=== PATIENT | female | born 2000 | race Caucasian/White ===

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

== ENCOUNTER → 2020-09-01 | Outpatient (CLI) | payer BC, SELFPAY ==
[2020-09-03 20:08] LABS: Chlamydia By Nucleic Acid AMP Negative (Negative)
[2020-09-03 21:26] LABS: Gonococcus By Nucleic Acid AMP Negative (Negative)
[2020-09-07 19:44] LABS: HPV Reflexed? NOT INDICATED
== END | disposition home or self-care (01) ==
LOC: LABSPEC 16:39
PROVIDERS: PCP Family Medicine; Visit Provider Obstetrics & Gynecology
DX: Z12.4 Encounter for screening for malignant neoplasm of cervix (principal)
CPT/HCPCS: 87491; 87591; 88175; G0145

== ENCOUNTER → 2021-09-03 | Outpatient (CLI) | payer BC, SELFPAY ==
[2021-09-06 18:07] LABS: Chlamydia By Nucleic Acid AMP Negative (Negative)
[2021-09-06 19:00] LABS: Gonococcus By Nucleic Acid AMP Negative (Negative)
== END | disposition home or self-care (01) ==
LOC: LABSPEC 10:07
PROVIDERS: PCP Family Medicine; Visit Provider Obstetrics & Gynecology
DX: Z11.3 Encounter for screening for infections with a predominantly sexual mode of transmission (principal)
CPT/HCPCS: 87491; 87591

== ENCOUNTER → 2022-02-23 | Outpatient (CLI) | payer BC, SELFPAY ==
[2022-02-23 13:48] LABS: Follicle Stimulating Hormone 5.7 mIU/mL; Luteinizing Hormone 7.3 mIU/mL; Prolactin 5.9 ng/mL
[2022-03-02 13:08] LABS: Testosterone, % Free 2.84 % (0.50-2.80); Testosterone, Total 28 ng/dL (13-71)
== END | disposition home or self-care (01) ==
LOC: WOBLAB 11:42
PROVIDERS: PCP Family Medicine; Visit Provider Student in an Organized Health Care Education/Training Program
DX: N92.6 Irregular menstruation, unspecified (principal)
CPT/HCPCS: 36415; 82627; 83001; 83002; 84146; 84402; 84403; 84443; 82626

== ENCOUNTER → 2023-01-03 | Outpatient (CLI) | payer BC, SELFPAY ==
[2023-01-03 08:12] LABS: Glucose 75GTT - Fasting 93 mg/dL (70-99)
[2023-01-03 08:26] LABS: Insulin 75GTT - Fasting 8.6 mU/L (2.6-37.6)
[2023-01-03 08:26] LABS: T3 Total - Triiodothyronine 1.36 ng/mL (0.6-1.81)
[2023-01-03 08:55] LABS: Glucose 75GTT - 60 minutes 107 mg/dL (100-160)
[2023-01-03 08:55] LABS: Glucose 75GTT - 30 minutes 147 mg/dL (100-160)
[2023-01-03 08:59] LABS: Insulin 75GTT - 30 MIN 57.1 mU/L (Not Estab.)
[2023-01-03 08:59] LABS: Insulin 75GTT - 60 min 66.8 mU/L (Not Estab)
[2023-01-03 09:02] LABS: Free T3 3.5 pg/mL (2.18-3.98); Prolactin 21.7 ng/mL; T4 Free Direct 1.15 ng/dL (0.76-1.46); Thyroid Stim Hormone (TSH) 4.62 uIU/mL (0.358-3.74)
[2023-01-03 09:14] LABS: Prolactin 9.8 ng/mL; Thyroid Stim Hormone (TSH) 2.74 uIU/mL (0.358-3.74)
[2023-01-03 09:14] LABS: Prolactin 12.3 ng/mL
[2023-01-03 09:50] LABS: Glucose 75GTT - 120 minutes 77 mg/dL (70-140)
[2023-01-03 09:53] LABS: Glucose 76 mg/dL (74-106)
[2023-01-03 09:58] LABS: Insulin 55.4 mU/L (2.6-37.6)
[2023-01-03 09:59] LABS: Insulin 75GTT - 120 min 38.7 mU/L (Not Estab.)
== END | disposition home or self-care (01) ==
PROVIDERS: PCP Family Medicine; Referring Provider Obstetrics & Gynecology; Visit Provider Obstetrics & Gynecology
DX: E03.9 Hypothyroidism, unspecified (principal); N92.6 Irregular menstruation, unspecified; Z13.1 Encounter for screening for diabetes mellitus
CPT/HCPCS: 36415; 82533; 82947; 82951; 82952; 83525; 84146; 84439; 84443; 84480; 84481

== ENCOUNTER → 2023-01-20 | Outpatient (CLI) | payer BC, SELFPAY ==
[2023-01-20 09:38] LABS: Cholesterol 123 mg/dL (200); High Density Lipoprotein 71 mg/dL; Triglycerides 44 mg/dL; Very Low Density Lipoprotein 9 mg/dL (5-40)
== END | disposition home or self-care (01) ==
LOC: LAB 08:00
PROVIDERS: PCP Family Medicine; Referring Provider Obstetrics & Gynecology; Visit Provider Obstetrics & Gynecology
DX: E24.9 Cushing's syndrome, unspecified (principal); Z13.228 Encounter for screening for other metabolic disorders
CPT/HCPCS: 36415; 80061; 82533

== ENCOUNTER → 2023-02-01 | Outpatient (CLI) | payer BC, SELFPAY | END | disposition home or self-care (01) | PROVIDERS: PCP Family Medicine; Referring Provider Obstetrics & Gynecology; Visit Provider Obstetrics & Gynecology | DX: E24.9 Cushing's syndrome, unspecified (principal) ==

== ENCOUNTER → 2023-03-15 | Outpatient (CLI) | payer BC, SELFPAY ==
[2023-03-15 11:53] LABS: Free T3 3.2 pg/mL (2.18-3.98); Prolactin 8.1 ng/mL; T4 Free Direct 1.19 ng/dL (0.76-1.46); Thyroid Stim Hormone (TSH) 1.91 uIU/mL (0.358-3.74)
[2023-03-28 00:07] LABS: Anti-Thyroglobulin AB 2.4 IU/mL (0.0-0.9); Thyroglobulin RIA 22 ng/mL (.); Thyroid Peroxidase AB 243 IU/mL (0-34)
== END | disposition home or self-care (01) ==
LOC: LAB 07:45
PROVIDERS: PCP Family Medicine; Visit Provider Obstetrics & Gynecology
DX: E07.9 Disorder of thyroid, unspecified (principal); E22.1 Hyperprolactinemia
CPT/HCPCS: 36415; 84146; 84432; 84439; 84443; 84480; 84481; 86376; 86800

== ENCOUNTER → 2023-10-31 | Outpatient (CLI) | payer BC, SELFPAY ==
[2023-10-31 08:35] LABS: T3 Total - Triiodothyronine 1.04 ng/mL (0.6-1.81)
[2023-10-31 13:04] LABS: Free T3 2.9 pg/mL (2.18-3.98); Prolactin 9.7 ng/mL; T4 Free Direct 1.15 ng/dL (0.76-1.46); Thyroid Stim Hormone (TSH) 5.29 uIU/mL (0.358-3.74)
== END | disposition home or self-care (01) ==
LOC: LAB 07:36
PROVIDERS: PCP Family Medicine; Referring Provider Obstetrics & Gynecology; Visit Provider Obstetrics & Gynecology
DX: E03.8 Other specified hypothyroidism (principal); E22.1 Hyperprolactinemia
CPT/HCPCS: 36415; 84146; 84439; 84443; 84480; 84481

== ENCOUNTER → 2023-11-20 | Outpatient (CLI) | payer BC, SELFPAY ==
[2023-11-20 09:45] LABS: Ferritin 50 ng/mL (8-252); Iron 55 ug/dL (50-170); Iron Binding Capacity,Total 283 ug/dL (250-450); PERCENT IRON SATURATION 19.4 % (15.0-55.0)
== END | disposition home or self-care (01) ==
PROVIDERS: PCP Family Medicine; Referring Provider Obstetrics & Gynecology; Visit Provider Obstetrics & Gynecology
DX: E03.9 Hypothyroidism, unspecified (principal); R53.82 Chronic fatigue, unspecified
CPT/HCPCS: 36415; 82728; 83540; 83550

== ENCOUNTER → 2024-04-24 | Outpatient (CLI) | payer BC, SELFPAY ==
[2024-04-25 08:10] LABS: PROLACTIN 10.9 ng/mL (4.8-33.4)
== END | disposition home or self-care (01) ==
LOC: LAB 07:16
PROVIDERS: PCP Family Medicine; Referring Provider Obstetrics & Gynecology; Visit Provider Obstetrics & Gynecology
DX: E22.1 Hyperprolactinemia (principal)
CPT/HCPCS: 36415; 84146

== ENCOUNTER → 2024-08-22 | Outpatient (CLI) | payer BC, SELFPAY ==
[2024-08-27 08:01] LABS: HPV Reflexed? NOT INDICATED
== END | disposition home or self-care (01) ==
LOC: LABSPEC 10:25
PROVIDERS: PCP Family Medicine; Referring Provider Nurse Practitioner Family; Visit Provider Nurse Practitioner Family
DX: Z12.4 Encounter for screening for malignant neoplasm of cervix (principal)
CPT/HCPCS: 88175; G0145

== ENCOUNTER → 2025-01-21 | Outpatient (CLI) | payer BC, SELFPAY ==
[2025-01-22 08:09] LABS: PROLACTIN 18.1 ng/mL (4.8-33.4)
== END | disposition home or self-care (01) ==
LOC: LAB 10:28
PROVIDERS: PCP Family Medicine; Referring Provider Nurse Practitioner Family; Visit Provider Nurse Practitioner Family
DX: E23.7 Disorder of pituitary gland, unspecified (principal)
CPT/HCPCS: 36415; 84146

== ENCOUNTER → 2025-02-24 | Outpatient (CLI) | payer OTHER, BC, SELFPAY ==
[2025-02-24 16:44] LABS: Free T3 3.2 pg/mL (2.18-3.98)
--- OUTSIDE RECORDS SUMMARY | 2025-02-24 19:09 | XMS RPT_ITS | CCD ---
Author Organization [facility] Care Team Providers Care Sales Agent Protective Service Name Role Phone Will REBOLLEDO, Dr. Gil Primary Care Provider Dr. Jeffery Solis MD Referring Provider 1( [phone] Jil MONTEIROCLizbeth Attending Provider [phone] Lizbeth Faulkner Referring Provider Jeffery Solis Primary Care Unavailable Fannie Fritz Referring Unavailable Fannie Fritz Attending Unavailable Lizbeth Ley Attending Unavailable Jeffery Solis Primary Care Unavailable Lizbeth Ley Referring Unavailable Lizbeth Ley Attending Unavailable Jeffery Solis Primary Care Unavailable Libzeth Ley Referring Unavailable Jeffery Solis Referring Unavailable Jeffery Solis Primary Care Unavailable Lizbeth Ley Attending Unavailable Allergies Allergy Classification Reported Allergen(s) Allergy Type Date of Onset Reaction(s) Facility (1 source) Adhesive Tape Drug allergy (disorder) 08-22-2024 [facility] Repository Medications Current Medications Medication Drug Class(es) Dates Sig (Normalized) Sig (Original) adapalene (2 sources) Retinoid Start: 06-06-2024 Adapalene (Dif ferin) 0.1 % gel Active 1 [facility] TOPICAL daily June 06, 2024 1:00am Start: 06-06-2024 End: 08-22-2024 Adapalene 0.1 % gel Disconti nued 1 NMA TOPICAL daily June 06, 2024 1:00am August 22, 2024 8:58am cabergoline 0.5 mg oral tablet (2 sources) Ergot Derivative Start: 06-06-2024 End: 08-22-2024 Cabergoline 0.5 mg tablet Active 0.5 mg PO .1xw August 22, 2024 8:58am docosahexaenoic acid 200 mg oral capsule (1 source) Start: 06-06-2024 Docosahexaenoic Acid ( Dha) 200 mg capsule Active mg PO June 06, 2024 1:00am levothyroxine sodium 0.025 mg oral tablet (1 source) l-Thyroxine Start: 06-06-2024 take 1 tablet by mouth once daily Levothyroxine (Synthroid) 25 mcg tablet Active 25 ug PO daily June 06, 2024 1:00am tretinoin 0.25 mg/ml topical cream (1 source) Retinoid Start: 06-06-2024 Tretinoin 0.025 % cream Active 1 NMA TOPICAL AT BEDTIME June 06, 2024 1:00am Problems Active Problems Problem Classification Problem Date Documented Da te Episodic/Chronic Other endocrine disorders (1 source) Disorder of pituitary gland, unspecified; Translations: [Disorder of pituitary gland, unspecified] Onset: 02-10-2025 Chronic Other endocrine disorders (1 source) Hyperprolactinemi a; Translations: [Hyperprolactinem ia] Onset: 05-14-2024 Chronic Past or Other Problems Problem Classification Problem Date Documented Da te Episodic/Chronic Other screening for suspected conditions (not mental disorders or infectious disease) (1 source) Encounter for screening for malignant neoplasm of cervix; Translations: [Encounter for screening for malignant neoplasm of cervix] Onset: 08-27-2024 Episodic Results Test Name Value Interpretation Reference Range Facility PROLACTIN 4465on 01-22-2025 PROLACTIN 18.1 ng/mL Normal 4.8-33.4 [facility] Comment on above: Result Comment: Perf ormed at: - [facility] [address] [id number] Main [place] Cook And Cashier: Demetrius Russo PhD, Phone: [phone] Performed By: #### L 5869.2186 #### [facility], [address] PAP I-G w/rfx hrHPV-Aptimaon 08-26-2024 ADEQ Comment Normal . [facility] Comment on above: Order Comment: Speci men Comment: [id number] Specimen Comment: No. of containers..01 ThinPrep Vial Result Comment: Sati sfactory for evaluation. Endocervical and/or squamous metaplastic cells (endocervical component) are present. Performed By: #### L 7400.0353 #### [facility] [address] [place], [address] COMM . Normal . [facility] Comment on above: Order Comment: Speci men Comment: [id number] Specimen Comment: No. of containers..01 ThinPrep Vial Performed By: #### L 7400.0353 #### [facility] [address] [place], [address] COMMENT Comment Normal . [facility] Comment on above: Order Comment: Speci men Comment: [id number] Specimen Comment: No. of containers..01 ThinPrep Vial Result Comment: This liquid based ThinPrep(R) pap test was screened with the use of an image guided system. Performed By: #### L 7400.0353 #### [facility] [address] [place], [address] DIAG Comment Normal . [facility] Comment on above: Order Comment: Speci men Comment: [id number] Specimen Comment: No. of containers..01 ThinPrep Vial Result Comment: NEGA TIVE FOR INTRAEPITHELIAL LESION OR MALIGNANCY. Performed By: #### L 7400.0353 #### [facility] [address] [place], [address] HPV RFLX Comment Normal . [facility] Comment on above: Order Comment: Speci men Comment: [id number] Specimen Comment: No. of containers..01 ThinPrep Vial Result Comment: The HPV DNA reflex criteria were not met with this specimen result therefore, no HPV testing was performed. Performed at: [address] [id number] Main [place] Cook And Cashier: Emma Rosenberg MD, Phone: [phone] Performed By: #### L 7400.0353 #### [facility] [address] [place], [place], [address] PAPSMR Comment Normal . [facility] Comment on above: Order Comment: Speci men Comment: [id number] Specimen Comment: No. of containers..01 ThinPrep Vial Result Comment: The Pap smear is a screening test designed to aid in the detection of premalignant and malignant conditions of the uterine cervix. It is not a diagnostic procedure and should not be used as the sole means of detecting cervical cancer. Both false-positive and false-negative reports do occur. Performed By: #### L 7400.0353 #### [facility] [address] [place], [place], [address] PERFORM Comment Normal . [facility] Comment on above: Order Comment: Speci men Comment: [id number] Specimen Comment: No. of containers..01 ThinPrep Vial Result Comment: Josee Huerta Marine Steam Fitter (ASCP) Performed By: #### L 7400.0353 #### [facility] [address] [place], [place], [address] Cervical or vagninal specime n microscopic examination by cytology stain (reported asOrdered By: Lizbeth Ley on 08-22-2024 Cytology report Cyto stain Doc (Cvx/Vag) Comment . [facility] Comment on above: The Pap smear is a s creening test designed to aid in thedetection of premalignant and malignant conditions of theuterine cervix. It is not a diagnostic procedure andshould not be used as the sole means of detecting cervicalcancer. Both false-positive and false-negative reports dooccur. Laboratory - CytologyOrdered By: Lizbeth Ley on 08-22-2024 Marine Steam Fitter Cyto stain Nom (Cvx/Vag) [ID] Comment . [facility] Comment on above: Josee Huerta Cyto logist (ASCP) Laboratory - Miscellaneous t estsOrdered By: Lizbeth Ley on 08-22-2024 Service comment (Unsp spec) [Interp] . . [facility] No Panel InformationOrdered By: Lizbeth Ley on 08-22-2024 Pap Smear Specimen Adequacy Comment . [facility] Comment on above: Satisfactory for stewart luation. Endocervical and/or squamous metaplasticcells (endocervical component) are present. 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: No Is patient in pain?: No Allergies adhesive tape Adverse Reaction (Verified 08/22/24 08:57) Rash Medications ???Medication ???Instructions ???Recorded ???Confirmed ???Type adapalene 0.1 % topical gel 1 applic topical QDAY 06/06/2412/09 History (Differin) docosahexaenoic acid 200 mg mg PO 06/06/24 08/22/24 History capsule ( DHA) levothyroxine 25 mcg tablet 25 mcg PO QDAY 06/06/24 08/22/24 H istory (Synthroid) tretinoin 0.025 % topical cream 1 applic topical QHS 06/06/24 05/0 12/09 History cabergoline 0.5 mg tablet 0.5 mg PO .1xw 08/22/24 08/22/24 H istory Is last menstrual period known: Yes Last Menstrual Period: 08/18/24 Post menopausal: No Patient : No : No Control Method: none PFSH Medical History Pituitary abnormality PCOS (polycystic ovarian syndrome) Hypothyroidism Surgical History [place] teeth removed (12/03/20) History of bunionectomy of left great toe (02/15/14) Family History Grandfather Thyroid disorder Social History adopted: No household members: significant other number of children: 0 service: No current occupational status: employed 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 [employer] current occupational exposures/hazards: Yes pets and animals: Yes (dog) leisure activities: exercise, fishing and reading history of recent travel: Yes ([place]) sexually active: Yes do you think of yourself as: straight/heterosexual current gender identity: female Smoking Status: Never smoker Electronic Cigarette Use: not used second hand exposure: Yes (uncle) alcohol intake: current alcohol intake frequency: a few times a month Alcohol type: wine and hard liquor substance use type: does not use well-balanced diet: daily or most days caffeine: Yes Type: carbonated beverages and coffee eating out: 1-3 times/week during the past year weight has: remained stable what type of physical activity do you participate in: walking, running, yoga and weight training How many days of moderate to strenuous exercise, like a brisk walk, did you do in the last 7 days: 3 frequency: 3-4 times per week duration: 45-60 minutes/day chris/confucianist: mandaeism seatbelt use: always do you feel safe at home: Yes additional social history: Ayesha LizarragaorPaz. 01/10/25 wedding History 0 Elective abortions Hx Para Spontaneous abortions Hx # Term Pregnancies Ectopic pregnancies Hx # Pregnancies Multiple births # of living children HPI Encounter for routine gynecological examination Details: MYLA OLIVO is a 24 year old who presents for annual exam. She reports no issues or concerns today. Getting in December; she is not currently using contraception-ayesha pulls out. She is okay with . Menses stable and regular. Last PAP: 2020; normal. History of abnormal PAP: no. Last mammogram: age. 39 History of abnormal mammogram: n/a. Colon cancer screening: age 44. Other preventative health care screenings: Jeffery Solis; PCP. Female Reproductive History Last Menstrual Period: 08/18/24 Cycle Length: 21-35 Bleeding Duration: 5 Questions: metorrhagia: No, sexually active: Yes, dyspareunia: No and PCB: No ROS Const Constitutional: Denies chills, fatigue, fever(s), headache(s) or weight loss Eyes Eyes: Denies change in vision ENT ENT: Denies dizziness Resp Resp: Denies cough GI GI: Denies abdominal pain, constipation or nausea : Denies difficulty voiding, dysuria, hematuria, nipple discharge, pelvic pain, prolapse symptoms, urinary incontinence, vaginal discharge, vaginal dryness, vaginal odor or vaginal pruritus Skin Skin/Breast: Denies alopecia, rash, breast mass, breast pain, breast skin changes or nipple discharge Neuro Neuro: Denies dizziness Psych Psych: Denies anxiety or depression Endo Endo: Denies cold intolerance, excessive sweating or heat intolerance Exam Const General: cooperative, healthy appearing, comfortable, no acute distress, well groomed and well hydrated Nutritional Appearance: well nourished Orientation: (more content not included)... Normal [facility] PROLACTIN 4465on 04-25-2024 PROLACTIN 10.9 ng/mL Normal 4.8-33.4 [facility] Comment on above: Result Comment: Perf ormed at: - [facility] [address] [id number] [place] Cook And Cashier: Demetrius Russo PhD, Phone: [phone] Performed By: #### L 3830.0688 #### [facility] [place], [address] Laboratory - Chemistry and C hemistry - challengeOrdered By: Fannie Padilla on 03-15-2023 Free T4 [Mass/Vol] 1.19 ng/dL 0.76-1.46 [facility] No Panel InformationOrdered By: Fannie Padilla on 03-15-2023 Free Triiodothyronine (T3) pg/dL 3.2 pg/mL 2.18-3.98 [facility] Thyroid Stimulating Hormone (TSH) 1.91 uIU/mL 0.358-3.74 [facility] Total Triiodothyronine 1.20 ng/mL 0.6-1.81 [facility] Serum or plasma prolactin me asurement (mass/volume)Ordered By: Fannie Padilla on 03-15-2023 Prolactin [Mass/Vol] 8.1 ng/mL [facility] Comment on above: NORMAL REFERENCE RAN GES FEMALE NON- 2.2 - 30.3 ng/mL 8.1 - 347.6 ng/mL POST-MENOPAUSAL 0.7 - 31.5 ng/mL MALE 2.5 - 17.4 ng/mL No Panel InformationOrdered By: Fannie Padilla on 02-01-2023 Miscellaneous Test See comment [facility] Comment on above: TEST RESULTS LIMITSS alivary Cortisol,MSSalivary Cortisol, MS 0.012 ug/dLThis test was developed and its performance characteristicsdetermined by [facility]. It has not been cleared or approvedby the Food and Drug Administration.Reference Range:Children and Adults:8:00a.m.: 0.025 - 0.600Noon: <0.010 - 0.3304:00p.m.: 0.010 - 0.200Bedtime (9:00p.m.-Midnight): <0.010 - 0.090 TESTING PERFORMED AT [facility]. ORIGINAL REPORT ON FILE IN LAB CONTAINS ADDITIONAL TEST SITE INFORMATION. Basophil percentageOrdered B y: Fannie Padilla on 01-20-2023 Cholesterol [Mass/Vol] 123 mg/dL <200 [facility] Comment on above: <200 mg/dL Desirable 200-240 mg/dL Borderline >240 mg/dL High Risk Triglyceride [Mass/Vol] 44 mg/dL <199 [facility] Comment on above: The drugs N-Acetylcy steine and Metamizole may falsely depress this assay.Serum Triglycerides Reference Interval Normal <150 mg/dL Borderline high 150 - 199 mg/dL High 200 - 499 mg/dL Very High > or = 500 mg/dL Serum or plasma cholesterol in HDL measurement (mass/volume)Ordered By: Fannie Padilla on 01-20-2023 Cholesterol in HDL [Mass/Vol] 71 mg/dL >40 [facility] Comment on above: The drugs N-Acetylcy steine and Metamizole may falsely depress this assay. Reference Range HDL <40 mg/dL Low HDL Cholesterol HDL >or= 60 mg/dL High HDL Cholesterol Serum or plasma cholesterol in VLDL measurement (mass/volume)Ordered By: Fannie Padilla on 01-20-2023 Cholesterol in VLDL [Mass/Vol] 9 mg/dL 5-40 [facility] Serum or plasma cortisol hima surement (mass/volume)Ordered By: Fannie Padilla on 01-20-2023 Cortisol [Mass/Vol] 23.30 ug/dL 3.44-22.45 [facility] Comment on above: Adult (AM) 5.27 - 22 .45 ug/dL Adult (PM) 3.44 - 16.76 ug/dLPlease note revised CORTISOL reference range effective 2019. Serum or plasma low density lipoprotein (LDL) cholesterol measurement (mass/volume)Ordered By: Fannie Padilla on 01-20-2023 Cholesterol in LDL [Mass/Vol] 43 mg/dL 0-130 [facility] Basophil percentageOrdered B y: Fannie Padilla on 01-03-2023 Glucose [Mass/Vol] 76 mg/dL 74-106 [facility] Laboratory - Chemistry and C hemistry - challengeOrdered By: Fannie Padilla on 01-03-2023 Free T4 [Mass/Vol] 1.15 ng/dL 0.76-1.46 [facility] No Panel InformationOrdered By: Fannie Padilla on 01-03-2023 Insulin Level 55.4 mU/L 2.6-37.6 [facility] Thyroid Stimulating Hormone (TSH) 2.74 uIU/mL 0.358-3.74 [facility] Glucose 2 Hour See comment [facility] Comment on above: FASTING 93 Col: 12/16 01/07 0714 30 min GLU 147 Col: 01/03/23 0751 60 min GLU 107 Col: 01/03/23 0819 120min GLU 77 Col: 01/03/23 0918 Free Triiodothyronine (T3) pg/dL 3.5 pg/mL 2.18-3.98 [facility] Total Triiodothyronine 1.36 ng/mL 0.6-1.81 [facility] Serum or plasma cortisol hima surement (mass/volume)Ordered By: Fannie Padilla on 01-03-2023 Cortisol [Mass/Vol] 30.70 ug/dL 3.44-22.45 [facility] Comment on above: Adult (AM) 5.27 - 22 .45 ug/dL Adult (PM) 3.44 - 16.76 ug/dLPlease note revised CORTISOL reference range effective 2019. Serum or plasma insulin angelika urement at 2 hours post 75 gm oral glucose (units/volume)Ordered By: Fannie Padilla on 01-03-2023 Insulin 2 Hr post 75 g glucose PO Qn See comment [facility] Comment on above: FASTING 8.6 Col: 0714 30 min INS 57.1 Col: 01/03/23 0751 60 min INS 66.8 Col: 01/03/23 0819 120min INS 38.7 Col: 01/03/23 0918 Serum or plasma prolactin me asurement (mass/volume)Ordered By: Fannie Padilla on 01-03-2023 Prolactin [Mass/Vol] 9.8 ng/mL [facility] Comment on above: NORMAL REFERENCE RAN GES FEMALE NON- 2.2 - 30.3 ng/mL 8.1 - 347.6 ng/mL POST-MENOPAUSAL 0.7 - 31.5 ng/mL MALE 2.5 - 17.4 ng/mL Chlamydia trachomatis rRNA d etection by probe and target amplification methodon 09-03-2021 C. trachomatis rRNA AMELIA+probe Ql (Unsp spec) Negative Negative [facility] Work Phone: Laboratory - Microbiology an d Antimicrobial susceptibilityon 09-03-2021 N. gonorrhoeae DNA AMELIA+probe Ql (Unsp spec) Negative Negative [facility] Work Phone: Comment on above: Performed at: =[facility] [address] [id number] Director: Emma Rosenberg MD, Phone: [phone] Vital Signs Date Time Vital Sign Value Performing Clinician Faci lity 08-22-2024 09:04-0400 Body height 170.[address] Jeffery Solis MD Work Phone: [facility] 08-22-2024 09:04-0400 Body mass index (BMI) [Ratio] 20.8 kg/m2 Dr. Jeffery Solis MD Work Phone: [facility] 08-22-2024 09:04-0400 Body weight 60.[address] Jeffery Solis MD Work Phone: [facility] 08-22-2024 09:04-0400 Diastolic blood pressure 82 mm[Hg] Dr. Jeffery Slois MD Work Phone: [facility] 08-22-2024 09:04-0400 Systolic blood pressure 135 mm[Hg] Dr. Jeffery Solis MD Work Phone: [facility] Encounters Encounter Date Encounter Type Care Provider Facility Start: 01-21-2025 End: 01-21-2025 ambulatory Lizbeth Ley Facility:[facility] Start: 08-22-2024 End: 08-22-[address] Jeffery Solis MD Work Phone: [facility] Work Phone: Start: 08-22-2024 End: 08-22-2024 Patient encounter procedure Lizbeth GONZALEZ -Laboratory, Specimen Work Phone: Start: 08-22-2024 End: 08-22-2024 Patient encounter procedure Lizbeth GONZALEZ -[facility] Work Phone: Start: 08-22-2024 End: 08-22-2024 ambulatory Jeffery Solis [place]: 08-22-2024 End: 08-22-2024 ambulatory Lizbeth Ley Facility:[facility] Start: 04-24-2024 End: 04-24-2024 ambulatory Jeffery Solis Facility:[facility] Start: 03-15-2023 End: 03-15-2023 ambulatory [facility] Work Phone: Start: 03-15-2023 End: 03-15-2023 Patient encounter procedure [facility]-Laboratory Work Phone: Start: 02-01-2023 End: 02-01-2023 ambulatory [facility] Work Phone: Start: 02-01-2023 End: 02-01-2023 Patient encounter procedure [facility]-Laboratory, Specimen Work Phone: Start: 01-20-2023 End: 01-20-2023 Patient encounter procedure [facility] Work Phone: Start: 01-03-2023 End: 01-03-2023 ambulatory [facility] Work Phone: Start: 01-03-2023 End: 01-03-2023 Patient encounter procedure [facility]Labor[facility] Work Phone: Start: 09-03-2021 End: 09-03-2021 Patient encounter procedure [facility]-Laboratory, Specimen Procedures Date Procedure Procedure Detail Performing Clinician Start: 08-22-2024 Liquid based cervica l cytology screening Dr. Jeffery Solis MD Work Phone: Comment on above: NEGATIVE FOR INTRAEP ITHELIAL LESION OR MALIGNANCY. This liquid based Th inPrep(R) pap test was screened withthe use of an image guided system. The HPV DNA reflex c riteria were not met with this specimenresult therefore, no HPV testing was performed.Performed at: [address] [id number] Director: Emma Rosenberg MD, Phone: [phone] Plan of Treatment Date Care Activity Detail Author Start: 02-01-2023 Procedure [facility] Procedure [facility] Thyroglobulin antibo dy measurement [facility] Thyroperoxidase Ab [ Units/volume] in Serum or Plasma [facility] Payers Date Payer Category Payer Self-pay [id number] 2024 Unknown [id number] 2015 Unknown [id number] Unknown SELF PAY INSURANCE [id number] Unknown [id number] Unknown [id number] [id number] [id number] Unknown [id number] [id number] [id number] Unknown [id number] 2.16.8 [id number] Unknown [id number] [id number] [id number] Social History Date Type Detail Facility Start: 02-10-2014 End: 02-10-2014 Tobacco smoking status TXIS Unknown if ever smoked [facility] Start: 2000 Sex Assigned At Female [facility] Start: 08-22-2024 Tobacco smoking stat us [facility] Never smoked tobacco (finding) [facility] Gender Identity Identifies as fe male gender (finding) [facility] Sexual Orientation Heterosexual (finding) [facility] Evaluation note Note Date & Type Note Facility Evaluation note No assessment information availa ble [facility] Work Phone: Reason for referral (narrative) Note Date & Type Note Facility Reason for referral (narrative) No reason for referral information available [facility] Work Phone: Advance Directives No Advanced Directives Records Found Advance Directive Response Recorded Date/ Time Advance Directives No February 10, 2014 9:28am Living Will No February 10 9:28am Power of Market Research Senior Project Manager No February 10, 2014 9:28am Advance Directive Response Recorded Date/ Time Advance Directives No February 10, 2014 8:28am Living Will No February 10 8:28am Power of Market Research Senior Project Manager No February 10, 2014 8:28am Advance Directive Response Recorded Date/ Time Advance Directives No February 10, 2014 9:28am Chief Complaint and Reason for Visit Chief Complaint diabities Chief Complaint Admit Date 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 Chris Solis MD Family Provider Active Dr. Chris Solis MD Primary Care Provider Activ e Team Status: Inactive Member Role Status Dates Dr. Chris Solis MD Primary Care Provider Activ e Dr. Fannie Padilla MD Attending Provider, Refer ring Provider Active Team Status: Inactive Member Role Status Dates Dr. Chris Solis MD Primary Care Provider Activ e Dr. Fannie Padilla MD Attending Provider Active Team Status: Active Member Role Status Dates Dr. Jeffery Solis MD Family Provider Active Dr. Jeffery Solis MD Primary Care Provider Acti ve Team Status: Inactive Member Role Status Dates Dr. Jeffery Solis MD Primary Care Provider Acti ve Start: August 22, 2024 End: August 22, 2024 Dr. Jeffery Solis MD Referring Provider Active Start: August 22, 2024 End: August 22, 2024 CARLOS Lezama Attending Provider Active Start: August 22, 2024 End: August 22, 2024 Team Status: Inactive Member Role Status Dates Dr. Jeffery Solis MD Primary Care Provider Acti ve Start: August 22, 2024 End: August 22, 2024 CARLOS Lezama Attending Provider Active Start: August 22, 2024 End: August 22, 2024 CARLOS Lezama Referring Provider Active Start: August 22, 2024 End: August 22, 2024 INFORMATION SOURCE (unrecogn ized section and content) DATE CREATED AUTHOR 02/11/2025 [facility] FOR RECORDS PERTAINING TO PATIENTS WHO ARE OR HAVE BEEN ENROLLED IN A CHEMICAL DEPENDENCY/SUBSTANCEABUSE PROGRAM, SOME INFORMATION MAY BE OMITTED. This clinical summary was aggregated from multiple sources. Caution should be exercised in using it in the provision of clinical care. This summary normalizes information from multiple sources, and as a consequence, information in this document may materially change the coding, format and clinical context of patient data. In addition, data may be omitted in some cases. CLINICAL DECISIONS SHOULD BE BASED ON THE PRIMARY CLINICAL RECORDS. [employer] [facility]. provides no warranty or guarantee of the accuracy or completeness of information in this document.
== END | disposition home or self-care (01) ==
PROVIDERS: PCP Family Medicine; Referring Provider Family Medicine; Visit Provider Family Medicine
DX: E03.9 Hypothyroidism, unspecified (principal)
CPT/HCPCS: 36415; 84439; 84443; 84481

== ENCOUNTER → 2025-03-18 | Outpatient (CLI) | payer OTHER, BC, SELFPAY ==
--- OUTSIDE RECORDS SUMMARY | 2025-03-18 07:42 | XMS RPT_ITS | CCD ---
Author Organization [facility] Care Team Providers Care Chain Offbearer Name Role Phone Will REBOLLEDO, Dr. Gil Primary Care Provider Dr. Jeffery Solis MD Referring Provider Jil METAL BONDING ASSEMBLER-CLizbeth Attending Provider Jil METAL BONDING ASSEMBLERJessicaCLizbeth Referring Provider Lizbeth Ley Attending Unavailable Lizbeth Ley Referring Unavailable Jeffery Solis Primary Care Unavailable Fannie Fritz Attending Unavailable Fannie Fritz Referring Unavailable Jeffery Solis Primary Care Unavailable Jeffery Solis Primary Care Unavailable Jeffery Solis Attending Unavailable Jeffery Solis Referring Unavailable Lizbeth Ley Attending Unavailable Jeffery Solis Primary Care Unavailable Jeffery Solis Referring Unavailable Lizbeth Ley Attending Unavailable Lizbeth Ley Referring Unavailable Jeffery Solis Primary Care Unavailable Allergies Allergy Classification Reported Allergen(s) Allergy [...] Test Name Value Interpretation Reference Range Facility Free T3on 02-24-2025 Free T3 [Mass/Vol] 3.2 pg/mL Normal 2.18-3.98 [facility] Comment on above: Order Comment: Order Date: 01/29/25 Order Info: 3051-0 - T3F Order Info: 3016-3 - TSH Order Info: 3024-7 - T4F Performed By: #### L 506.0400, L501.15805, L501.9520 #### [facility] [address] [place], [address] T4 Free Directon 02-24-2025 T4 FREE DIRECT 1.40 ng/dL Normal 0.76-1.46 [facility] Comment on above: Order Comment: Order Date: 01/29/25 Order Info: 305-0 - T3F Order Info: 3 - TSH Order Info: 3023-10 - T4F Performed By: #### L 506.0400, L501.10586, L501.9520 #### [facility] [address] [place], [place], [address] Thyroid Stim Hormone (TSH)on 02-24-2025 TSH 1.730 uIU/mL Normal 0.300-4.200 [facility] Comment on above: Order Comment: Order Date: 01/29/25 Order Info: 305-0 - T3F Order Info: 3 - TSH Order Info: 3023-10 - T4F Performed By: #### L 506.0400, L501.12496, L501.9520 #### [facility] [address] [place], [address] PROLACTIN 4465on 01-22-2025 PROLACTIN 18.1 ng/mL Normal 4.8-33.4 [facility] Comment on above: Result Comment: Perf ormed at: - [facility] [id number] Gandy Dancer: Demetrius Russo PhD, Phone: [phone] Performed By: #### L 3108.5400 #### [facility] [address] [place], [place], [id number] PAP I-G w/rfx hrHPV-Aptimaon 08-26-2024 ADEQ Comment Normal . [facility] Comment on above: Order Comment: Speci men Comment: [id number] Specimen Comment: No. of containers..01 ThinPrep Vial Result Comment: Sati sfactory for evaluation. Endocervical and/or squamous metaplastic cells (endocervical component) are present. Performed By: #### L 7400.0353 #### [facility] [address] [place], [place], [address] COMM . Normal . [facility] Comment on above: Order Comment: Speci men Comment: [id number] Specimen Comment: No. of containers..01 ThinPrep Vial Performed By: #### L 7400.0353 #### [facility] [address] [place], [place], [id number] COMMENT Comment Normal . [facility] Comment on above: Order Comment: Speci men Comment: [id number] Specimen Comment: No. of containers..01 ThinPrep Vial Result Comment: This liquid based ThinPrep(R) pap test was screened with the use of an image guided system. Performed By: #### L 7400.0353 #### [facility] [address] [place], [place], [id number] DIAG Comment Normal . [facility] Comment on above: Order Comment: Speci men Comment: [id number] Specimen Comment: No. of containers..01 ThinPrep Vial Result Comment: NEGA TIVE FOR INTRAEPITHELIAL LESION OR MALIGNANCY. Performed By: #### L 7400.0353 #### [facility] [address] [place], [place], [id number] HPV RFLX Comment Normal . [facility] Comment on above: Order Comment: Speci men Comment: [id number] Specimen Comment: No. of containers..01 ThinPrep Vial Result Comment: The HPV DNA reflex criteria were not met with this specimen result therefore, no HPV testing was performed. Performed at: - [facility] [id number] Gandy Dancer: Emma Rosenberg MD, Phone: [phone] Performed By: #### L 7400.0353 #### [facility] [address] [place], [place], [address] PAPSMR Comment Normal . [facility] Comment on above: Order Comment: Speci men Comment: [id number] Specimen Comment: No. of containers..01 ThinPrep Vial [...] [facility] [address] [place], [place], [address] PERFORM Comment Normal . [facility] Comment on above: Order Comment: Speci men Comment: [id number] Specimen Comment: No. of containers..01 ThinPrep Vial Result Comment: Josee Huerta Seam Checker (ASCP) Performed By: #### L 7400.0353 #### [facility] [address] [place], [place], [address] Cervical or vagninal specime n microscopic examination [...] - CytologyOrdered By: Lizbeth Ley on 08-22-2024 Seam Checker Cyto stain Nom (Cvx/Vag) [ID] Comment . [facility] Comment on above: Josee Huerta Cyto logist (ASCP) Laboratory - Miscellaneous t estsOrdered By: Lizbeth Ley on 08-22-2024 Service comment (Unsp spec) [Interp] . . [facility] No Panel InformationOrdered By: Lizbeth Ley on 08-22-2024 Pap Smear Specimen Adequacy Comment . [facility] Comment on above: Satisfactory for stewart luation. Endocervical and/or squamous metaplasticcells (endocervical component) are present. 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) Larriman Helper Required: No Is patient in pain?: No [...] % topical cream 1 applic topical QHS 06/06/2412/09 History cabergoline 0.5 mg tablet 0.5 mg PO .1xw 08/22/24 08/22/24 H istory Is last menstrual period known: Yes Last Menstrual Period: 08/18/24 Post menopausal: No Patient : No : No Control Method: none [facility] Medical History Pituitary abnormality PCOS (polycystic ovarian syndrome) Hypothyroidism Surgical History [place] teeth removed (12/03/20) History of bunionectomy of left great toe (02/15/14) Family History Grandfather Thyroid disorder Social History adopted: No household members: significant other number of children: 0 service: No current occupational status: employed 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 01/10/25 wedding History 0 Elective abortions Hx [...] Result Comment: Perf ormed at: - [facility] [address] [id number] Gandy Dancer: Demetrius Russo PhD, Phone: [phone] Performed By: #### L 9705.5409 #### [facility] [address] [place] [address], [address] Laboratory - Chemistry and C hemistry - challengeOrdered By: Fannie Padilla on 03-15-2023 Free T4 [Mass/Vol] 1.19 ng/dL 0.76-1.46 [facility] No Panel InformationOrdered By: Fannie Randy on 03-15-2023 Free Triiodothyronine (T3) pg/dL 3.2 pg/mL 2.18-3.98 [facility] Thyroid Stimulating Hormone (TSH) 1.91 uIU/mL 0.358-3.74 [facility] Total Triiodothyronine 1.20 ng/mL 0.6-1.81 [facility] Serum or plasma prolactin me asurement (mass/volume)Ordered By: Fannie Padilla on 03-15-2023 Prolactin [Mass/Vol] 8.1 ng/mL [facility] Comment on above: NORMAL REFERENCE RAN GES FEMALE NON- 2.2 - 30.3 ng/mL 8.1 - 347.6 ng/mL POST-MENOPAUSAL 0.7 - 31.5 ng/mL MALE 2.5 - 17.4 ng/mL No Panel InformationOrdered By: Fannie Padilla on 02-01-2023 Miscellaneous Test See comment [facility] Comment on above: TEST RESULTS LIMITSS alivary Cortisol,MSSalivary Cortisol, MS 0.012 ug/dLThis test was developed and its performance characteristicsdetermined by [facility]. It has not been cleared or approvedby the Food and Drug Administration.Reference Range:Children and Adults:8:00a.m.: 0.025 - 0.600Noon: <0.010 - 0.3304:00p.m.: 0.010 - 0.200Bedtime (9:00p.m.-Midnight): <0.010 - 0.090 TESTING PERFORMED AT [facility]. ORIGINAL REPORT ON FILE IN LAB CONTAINS [...] on 01-20-2023 Cortisol [Mass/Vol] 23.30 ug/dL 3.44-22.45 [facility] Comment on above: Adult (AM) 5.27 - 22 .45 ug/dL Adult (PM) 3.44 - 16.76 ug/dLPlease note revised CORTISOL reference range effective 2019. Serum or plasma low density lipoprotein (LDL) cholesterol measurement (mass/volume)Ordered By: Fannie Padilla on 01-20-2023 Cholesterol in LDL [Mass/Vol] 43 mg/dL 0-130 [facility] Basophil percentageOrdered B y: Fannie Padilla on 01-03-2023 Glucose [Mass/Vol] 76 mg/dL 74-106 [facility] - Chemistry and C hemistry - challengeOrdered By: Fannie Padilla on 01-03-2023 Free T4 [Mass/Vol] 1.15 ng/dL 0.76-1.46 [facility] No Panel InformationOrdered By: Fannie Padilla on [...] on 01-03-2023 Cortisol [Mass/Vol] 30.70 ug/dL 3.44-22.45 [facility] Comment on above: Adult (AM) 5.27 - [...] 01/03/23 0819 120min INS 38.7 Col: 01/03/23 09 Serum or plasma prolactin me asurement (mass/volume)Ordered By: Fannie Padilla on 01-03-2023 Prolactin [Mass/Vol] 9.8 ng/mL [facility] Comment on above: NORMAL REFERENCE RAN GES [...] Work Phone: Comment on above: Performed at: =[address] [id number] Director: Emma Rosenberg MD, Phone: [phone] Vital Signs Date Time Vital Sign Value Performing Clinician Thanh davison 08-22-2024 09:04-0400 Body height 170.[address] Jeffery Solis MD Work Phone: [facility] 08-22-2024 09:04-0400 Body mass index (BMI) [Ratio] 20.8 kg/m2 Dr. Jeffery Solis MD Work Phone: [facility] 08-22-2024 09:04-0400 Body weight 60.[address] Jeffery Solis MD Work Phone: [facility] 08-22-2024 09:04-0400 Diastolic blood pressure 82 mm[Hg] Dr. Jeffery Solis MD Work Phone: [facility] 08-22-2024 09:04-0400 Systolic blood pressure 135 mm[Hg] Dr. Jeffery Solis MD Work Phone: [facility] Encounters Encounter Date Encounter Type Care Provider Facility Start: 02-24-2025 ambulatory Jeffery Solis [facility] Start: 01-21-2025 End: 01-21-2025 ambulatory [facility] Facility:[facility] Start: 08-22-2024 End: 08-22-[address] Jeffery Solis MD Work Phone: [facility] Work Phone: Start: 08-22-2024 End: 08-22-2024 Patient encounter procedure Lizbeth Ley METAL BONDING ASSEMBLER-C -Laboratory, Specimen Work Phone: Start: 08-22-2024 End: 08-22-2024 Patient encounter procedure Lizbeth Ley METAL BONDING ASSEMBLER-C -[facility] Work Phone: Start: 08-22-2024 End: 08-22-2024 ambulatory Lizbeth Jacobobethel Facility:[facility] [place] [place] Start: 08-22-2024 End: 08-22-2024 ambulatory Lizbeth Ley Facility:[facility] Start: 04-24-2024 End: 04-24-[address] [facility] Hernandez Randy Facility:[facility] Start: 03-15-2023 End: 03-15-2023 ambulatory [facility] Work Phone: Start: 03-15-2023 End: 03-15-2023 Patient encounter procedure [facility]-Laboratory Work Phone: Start: 02-01-2023 End: 02-01-2023 ambulatory [facility] Work Phone: Start: 02-01-2023 End: 02-01-2023 [facility] Start: 01-20-2023 End: 01-20-2023 [...] therefore, no HPV testing was performed.Performed at: [address] [id number] Director: Emma Rosenberg MD, Phone: [phone] Plan of Treatment Date Care Activity Detail Author Start: 02-01-2023 Procedure [facility] Procedure [facility] Thyroglobulin antibo dy measurement [facility] Thyroperoxidase Ab [ Units/volume] in Serum or Plasma [facility] Payers Date Payer Category Payer Unknown [id number] 2024 Self-pay [id number] 2024 Unknown [id number] 2015 Unknown [id number] Unknown SELF PAY INSURANCE [id number] Unknown [id number] Unknown [id number] 2.16.8 [id number] Unknown [id number] 2.16.8 [id number] Unknown [id number] 2.16.8 [id number] Unknown [id number] 2.16.8 [id number] Unknown [id number] 2.16.8 [id number] Social History Date Type Detail Facility Start: 02-10-2014 End: 02-10-2014 Tobacco smoking status WAIS Unknown if ever smoked [facility] Start: 2000 Sex Assigned At Female [facility] Start: 08-22-2024 Tobacco smoking stat [facility] Never smoked tobacco (finding) [facility] [...] Will No February 10 9:28am Power of Port Surveyor No February 10, 2014 9:28am Advance Directive Response Recorded Date/ Time Advance Directives No February 10, 2014 8:28am Living Will No February 10 8:28am Power of Port Surveyor No February 10, 2014 8:28am Advance Directive Response Recorded Date/ Time Advance Directives No February 10, 2014 9:28am Chief Complaint and Reason for Visit Chief Complaint diabities Chief Complaint 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 [facility] [employer] [facility]. provides no warranty or guarantee of the accuracy or completeness of information in this document.
[2025-03-18 11:46] LABS: CORTISOL AM 20.90 ug/dL (6.02-18.40)
[2025-03-19 04:07] LABS: PROLACTIN 45.5 ng/mL (4.8-33.4)
== END | disposition home or self-care (01) ==
LOC: LAB 07:37
PROVIDERS: PCP Family Medicine; Referring Provider Nurse Practitioner Family; Visit Provider Nurse Practitioner Family
DX: R79.89 Other specified abnormal findings of blood chemistry (principal); E03.9 Hypothyroidism, unspecified
CPT/HCPCS: 36415; 82533; 84146; 86376

== ENCOUNTER → 2025-03-25 | Outpatient (CLI) | payer OTHER, BC, SELFPAY ==
[2025-03-25 12:16] LABS: hCG Titer Quant., Serum 404 mIU/mL (<9 non-preg)
== END | disposition home or self-care (01) ==
PROVIDERS: PCP Family Medicine; Visit Provider Obstetrics & Gynecology
DX: Z34.90 Encounter for supervision of normal pregnancy, unspecified, unspecified trimester (principal)
CPT/HCPCS: 36415; 84702

== ENCOUNTER → 2025-03-27 | Outpatient (CLI) | payer OTHER, BC, SELFPAY ==
[2025-03-27 10:09] LABS: hCG Titer Quant., Serum 895 mIU/mL (<9 non-preg)
== END | disposition home or self-care (01) ==
LOC: LAB 09:19
PROVIDERS: PCP Family Medicine; Referring Provider Obstetrics & Gynecology; Visit Provider Obstetrics & Gynecology
DX: Z34.90 Encounter for supervision of normal pregnancy, unspecified, unspecified trimester (principal)
CPT/HCPCS: 36415; 84702

== ENCOUNTER → 2025-03-31 | Outpatient (CLI) | payer OTHER, BC, SELFPAY ==
[2025-03-31 13:03] LABS: hCG Titer Quant., Serum 4253 mIU/mL (<9 non-preg)
== END | disposition home or self-care (01) ==
PROVIDERS: Nurse Practitioner Women's Health; PCP Family Medicine; Visit Provider Obstetrics & Gynecology
DX: Z34.90 Encounter for supervision of normal pregnancy, unspecified, unspecified trimester (principal)
CPT/HCPCS: 36415; 84702

== ENCOUNTER → 2025-04-09 | Outpatient (CLI) | payer OTHER, BC, SELFPAY ==
--- NOTE | 2025-04-09 07:48 | US_ITS ---
PROCEDURE: TRANSVAGINAL W/PREG US 04/09/2025 REASON FOR EXAM: DATING US. Provided LMP 02/22/2025. TECHNIQUE: Procedure Code: [id number] Modality: US Procedure: TRANSVAGINAL W/PREG US COMPARISON: None. FINDINGS GESTATION: Single intrauterine gestational sac with a mean diameter of 18.0 mm. An embryonic pole is identified with a mean crown rump length of 6.0 mm. Positive cardiac activity with a heart rate of 115 beats per minute. Normal appearing yolk sac present. No gross abnormality is identified. LMP gestational age: 6 weeks 4 days LMP DEANDRA: November 29, 2025 Sonographic gestational age: 6 weeks 5 days Sonographic DEANDRA: November 28, 2025 UTERUS: Unremarkable measuring 9.8 x 7.2 x 4.8 cm. No myometrial mass. CERVIX: Closed. Unremarkable. OVARIES: Normal size and appearance. Right ovary measures 3.1 x 1.7 x 2.2 cm with a volume of 6.3 mL. Left ovary measures 3.5 x 2.0 x 2.3 cm with a volume of 8.7 mL. Doppler evaluation confirms bilateral ovarian blood flow. No adnexal mass. FREE FLUID: No free fluid. US/Transvaginal w/Preg US IMPRESSION: Single live intrauterine with an EGA of 6 weeks 5 days. Size equals dates. No acute abnormality. Reading Location: [id number]
--- OUTSIDE RECORDS SUMMARY | 2025-04-09 07:49 | XMS RPT_ITS | CCD ---
Author Organization [facility] Care Team Providers Care Physical Therapy Aid Name Role Phone Will REBOLLEDO, Dr. Gil Primary Care Provider Dr. Jeffery Solis MD Referring Provider Jil CHARGING OPERATOR-CLizbeth Attending Provider Jil CHARGING OPERATORJessicaCLizbeth Referring Provider [phone] Lizbeth Ley Attending Unavailable Lizbeth Ley Referring [...] source) Adhesive Tape Drug allergy (disorder) 08-22-[address] [facility] Repository Medications Current Medications Medication Drug Class(es) [...] Free T3 [Mass/Vol] 3.2 pg/mL Normal 2.18-3.98 [facility] Comment on above: Order Comment: Order Date: 01/29/25 Order Info: 3051-0 - T3F Order Info: 3016-3 - TSH Order Info: 3024-7 - T4F Performed By: #### L 506.0400, L501.91614, L501.9520 #### [facility] [address] [place], [address] T4 Free Directon 02-24-2025 T4 FREE DIRECT 1.40 ng/dL Normal 0.76-1.[address] [facility] Comment on above: Order Comment: Order Date: 01/29/25 Order Info: 305-0 - T3F Order Info: 3 - TSH Order Info: 3023-10 - T4F Performed By: #### L 506.0400, L501.24351, L501.9520 #### [facility] [address] [place], [place], [address] Thyroid Stim Hormone (TSH)on 02-24-2025 TSH 1.730 uIU/mL Normal 0.300-4.[address] [facility] Comment on above: Order Comment: Order Date: 01/29/25 Order Info: 305-0 - T3F Order Info: 3 - TSH Order Info: 3023-10 - T4F Performed By: #### L 506.0400, L501.36888, L501.9520 #### [facility] [address] [place], [address] PROLACTIN 4465on 01-22-2025 PROLACTIN 18.1 ng/mL Normal 4.8-33.[address] [facility] Comment on above: Result Comment: Perf ormed at: - [facility] [id number] Statistical Analyst: Demetrius Russo PhD, Phone: [phone] Performed By: #### L 3108.5400 #### [facility] [address] [place], [place], [id number] PAP I-G w/rfx hrHPV-Aptimaon 08-26-2024 ADEQ Comment Normal . [facility] Comment on above: Order Comment: Speci men Comment: [id number] Specimen Comment: No. of containers..01 ThinPrep Vial Result Comment: Sati sfactory for evaluation. Endocervical and/or squamous metaplastic cells (endocervical component) are present. Performed By: #### L 7400.0353 #### [facility] [address] [place], [place], [address] COMM . Normal . [facility] Comment on above: Order Comment: Speci men Comment: [id number] Specimen Comment: No. of containers..01 ThinPrep Vial Performed By: #### L 7400.0353 #### [facility] [address] [place], [place], [id number] COMMENT Comment Normal . [facility] Comment on above: Order Comment: Speci men Comment: [id number] Specimen Comment: No. of containers..01 ThinPrep Vial Result Comment: This liquid based ThinPrep(R) pap test was screened with the use of an image guided system. Performed By: #### L 7400.0353 #### [facility] [address] [place], [place], [id number] DIAG Comment Normal . [facility] Comment on above: Order Comment: Speci men Comment: [id number] Specimen Comment: No. of containers..01 ThinPrep Vial Result Comment: NEGA TIVE FOR INTRAEPITHELIAL LESION OR MALIGNANCY. Performed By: #### L 7400.0353 #### [facility] [address] [place], [place], [address] HPV RFLX Comment Normal . [facility] Comment on above: Order Comment: Speci men Comment: [id number] Specimen Comment: No. of containers..01 ThinPrep Vial Result Comment: The HPV DNA reflex criteria were not met with this specimen result therefore, no HPV testing was performed. Performed at: - [facility] [id number] Statistical Analyst: Emma Rosenberg MD, Phone: [phone] Performed By: #### L 7400.0353 #### [facility] [address] [place], [place], [address] PAPSMR Comment Normal . [facility] Comment on above: Order Comment: Speci men Comment: [id number] Specimen Comment: No. of containers..01 ThinPrep Vial Result Comment: The Pap smear is a screening test designed to aid in the detection of premalignant and malignant conditions of the uterine cervix. It is not a diagnostic procedure and should not be used as the sole means of detecting cervical cancer. Both false-positive and false-negative reports do occur. Performed By: #### L 7400.0353 #### [facility] [address] [place], [place], [id number] PERFORM Comment Normal . [facility] Comment on above: Order Comment: Speci men Comment: [id number] Specimen Comment: No. of containers..01 ThinPrep Vial Result Comment: Josee Huerta Ui Software Developer (ASCP) Performed By: #### L 7400.0353 #### [facility] [address] [place], [place], [address] Cervical or vagninal specime n microscopic examination by cytology stain (reported asOrdered By: Lizbeth Ley on 08-22-2024 Cytology report Cyto stain Doc (Cvx/Vag) Comment . [facility] Comment on above: The Pap smear is a s creening test designed to aid in thedetection of premalignant and malignant conditions of theuterine cervix. It is not a diagnostic procedure andshould not be used as the sole means of detecting cervicalcancer. Both false-positive and false-negative reports dooccur. Laboratory - CytologyOrdered By: Lizbeth Ley on 08-22-2024 Ui Software Developer Cyto stain Nom (Cvx/Vag) [ID] Comment . [facility] Comment on above: Josee Huerta Cyto logist (ASCP) Laboratory - Miscellaneous t estsOrdered By: Lizbeth Ley on 08-22-2024 Service comment (Unsp spec) [Interp] . . [facility] No Panel InformationOrdered By: Lizbeth Ley on 08-22-2024 Pap Smear Specimen Adequacy Comment . [facility] Comment on above: Satisfactory for stewart luation. Endocervical and/or squamous metaplasticcells (endocervical component) are present. 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 Normal [facility] PROLACTIN 4465on 04-25-2024 PROLACTIN 10.9 ng/mL Normal 4.8-33.[address] [facility] Comment on above: Result Comment: Perf ormed at: - [facility] [address] [id number] Statistical Analyst: Demetrius Russo PhD, Phone: [phone] Performed By: #### L 9268.5409 #### [facility] [address] [place] [address], [address] Laboratory - Chemistry and C hemistry - challengeOrdered By: Fannie Padilla on 03-15-2023 Free T4 [Mass/Vol] 1.19 ng/dL 0.76-1.46 [facility] No Panel InformationOrdered By: Fannie Randy on 03-15-2023 Free Triiodothyronine (T3) pg/dL 3.2 pg/mL 2.18-3.[address] [facility] Thyroid Stimulating Hormone (TSH) 1.91 uIU/mL 0.358-3.[address] [facility] Total Triiodothyronine 1.20 ng/mL 0.6-1.[address] [facility] Serum or plasma prolactin me asurement (mass/volume)Ordered By: Fannie Padilla on 03-15-2023 Prolactin [Mass/Vol] 8.1 ng/mL [facility] Comment on above: NORMAL REFERENCE RAN GES FEMALE NON- 2.2 - 30.3 ng/mL 8.1 - 347.6 ng/mL POST-MENOPAUSAL 0.7 - 31.5 ng/mL MALE 2.5 - 17.4 ng/mL No Panel InformationOrdered By: Fannie Padilla on 02-01-2023 Miscellaneous Test See comment [facility] Comment on above: TEST RESULTS LIMITSS alivary Cortisol,MSSalivary Cortisol, MS 0.012 ug/dLThis test was developed and its performance characteristicsdetermined by [employer]. It has not been cleared or approvedby the Food and Drug Administration.Reference Range:Children and Adults:8:00a.m.: 0.025 - 0.600Noon: <0.010 - 0.3304:00p.m.: 0.010 - 0.200Bedtime (9:00p.m.-Midnight): <0.010 - 0.090 TESTING PERFORMED AT [facility]. ORIGINAL REPORT ON FILE IN LAB CONTAINS ADDITIONAL TEST SITE INFORMATION. Basophil percentageOrdered B y: Fannie Padilla on 01-20-2023 Cholesterol [Mass/Vol] 123 mg/dL <[address] [facility] Comment on above: <200 mg/dL Desirable 200-240 mg/dL Borderline >240 mg/dL High Risk Triglyceride [Mass/Vol] 44 mg/dL <[address] [facility] Comment on above: The drugs N-Acetylcy steine and Metamizole may falsely depress this assay.Serum Triglycerides Reference Interval Normal <150 mg/dL Borderline high 150 - 199 mg/dL High 200 - 499 mg/dL Very High > or = 500 mg/dL Serum or plasma cholesterol in HDL measurement (mass/volume)Ordered By: Fannie Padilla on 01-20-2023 Cholesterol in HDL [Mass/Vol] 71 mg/dL >[address] [facility] Comment on above: The drugs N-Acetylcy steine and Metamizole may falsely depress this assay. Reference Range HDL <40 mg/dL Low HDL Cholesterol HDL >or= 60 mg/dL High HDL Cholesterol Serum or plasma cholesterol in VLDL measurement (mass/volume)Ordered By: Fannie Padilla on 01-20-2023 Cholesterol in VLDL [Mass/Vol] 9 mg/dL 5-[address] [facility] Serum or plasma cortisol hima surement (mass/volume)Ordered By: Fannie Padilla on 01-20-2023 Cortisol [Mass/Vol] 23.30 ug/dL 3.44-22.45 [facility] Comment on above: Adult (AM) 5.27 - 22 .45 ug/dL Adult (PM) 3.44 - 16.76 ug/dLPlease note revised CORTISOL reference range effective 2019. Serum or plasma low density lipoprotein (LDL) cholesterol measurement (mass/volume)Ordered By: Fannie Padilla on 01-20-2023 Cholesterol in LDL [Mass/Vol] 43 mg/dL 0-[address] [facility] Basophil percentageOrdered B y: Fannie Padilla on 01-03-2023 Glucose [Mass/Vol] 76 mg/dL 74-106 [facility] Laboratory - Chemistry and C hemistry - challengeOrdered By: Fannie Padilla on 01-03-2023 Free T4 [Mass/Vol] 1.15 ng/dL 0.76-1.46 [facility] No Panel InformationOrdered By: Fannie Padilla on 01-03-2023 Insulin Level 55.4 mU/L 2.6-37.[address] [facility] Thyroid Stimulating Hormone (TSH) 2.74 uIU/mL 0.358-3.[address] [facility] Glucose 2 Hour See comment [facility] Comment on above: FASTING 93 Col: 12/16 01/07 0714 30 min GLU 147 Col: 01/03/23 0751 60 min GLU 107 Col: 01/03/23 0819 120min GLU 77 Col: 01/03/23 0918 Free Triiodothyronine (T3) pg/dL 3.5 pg/mL 2.18-3.[address] [facility] Total Triiodothyronine 1.36 ng/mL 0.6-1.[address] [facility] Serum or plasma cortisol hima surement (mass/volume)Ordered By: Fannie Padilla on 01-03-2023 Cortisol [Mass/Vol] 30.70 ug/dL 3.44-22.45 [facility] Comment on above: Adult (AM) 5.27 - 22 .45 ug/dL Adult (PM) 3.44 - 16.76 ug/dLPlease note revised CORTISOL reference range effective 2019. Serum or plasma insulin angelika urement at 2 hours post 75 gm oral glucose (units/volume)Ordered By: Fannie Padilla on 01-03-2023 Insulin 2 Hr post 75 g glucose PO Qn See comment [facility] Comment on above: FASTING 8.6 Col: 0714 30 min INS 57.1 Col: 01/03/23 0751 60 min INS 66.8 Col: 01/03/23 0819 120min INS 38.7 Col: 01/03/23 09 Serum or plasma prolactin me asurement (mass/volume)Ordered By: Fannie Padilla on 01-03-2023 Prolactin [Mass/Vol] 9.8 ng/mL [facility] Comment on above: NORMAL REFERENCE RAN GES FEMALE NON- 2.2 - 30.3 ng/mL 8.1 - 347.6 ng/mL POST-MENOPAUSAL 0.7 - 31.5 ng/mL MALE 2.5 - 17.4 ng/mL Chlamydia trachomatis rRNA d etection by probe and target amplification methodon 09-03-2021 C. trachomatis rRNA AMELIA+probe Ql (Unsp spec) Negative Negative [facility] Work Phone: Laboratory - Microbiology an d Antimicrobial susceptibilityon 09-03-2021 N. gonorrhoeae DNA AMELIA+probe Ql (Unsp spec) Negative Negative [facility] Work Phone: Comment on above: Performed at: =[address] [id number] Director: Emma Rosenberg MD, Phone: [phone] Vital Signs Date Time Vital Sign Value Performing Clinician Thanh davison 08-22-2024 09:04-0400 Body height 170.[address] Jeffery Solis MD Work Phone: [facility] 08-22-2024 09:04-0400 Body mass index (BMI) [Ratio] 20.8 kg/m2 Dr. Jeffery Solis MD Work Phone: [facility] 08-22-2024 09:04-0400 Body weight 60.[address] Jeffery Solis MD Work Phone: [facility] 08-22-2024 09:04-0400 Diastolic blood pressure 82 mm[Hg] Dr. Jeffery Solis MD Work Phone: [facility] 08-22-2024 09:04-0400 Systolic blood pressure 135 mm[Hg] Dr. Jeffery Solis MD Work Phone: [facility] Encounters Encounter Date Encounter Type Care Provider Facility Start: 02-24-2025 ambulatory Jeffery Solis [facility] Start: 01-21-2025 End: 01-21-[address] [facility] Facility:[facility] Start: 08-22-2024 End: 08-22-[address] Jeffery Solis MD Work Phone: [facility] Work Phone: Start: 08-22-2024 End: 08-22-2024 Patient encounter procedure Lizbeth Ley CHARGING OPERATOR-C -Laboratory, Specimen Work Phone: Start: 08-22-2024 End: 08-22-2024 Patient encounter procedure Lizbeth Ley CHARGING OPERATOR-C -[facility] Work Phone: Start: 08-22-2024 End: 08-22-2024 ambulatory [place] Facility:[facility] [place] Start: 08-22-2024 End: 08-22-2024 ambulatory Lizbeth Ley Facility:[facility] Start: 04-24-2024 End: 04-24-2024 ambulatory [facility] Hernandez Randy Facility:[facility] Start: 03-15-2023 End: 03-15-[address] [facility] Work Phone: Start: 03-15-2023 End: 03-15-2023 Patient encounter procedure [facility] Work Phone: Start: 02-01-2023 End: 02-01-[address] [facility] Work Phone: Start: 02-01-2023 End: 02-01-2023 [facility] Start: 01-20-2023 End: 01-20-2023 Patient encounter procedure [facility] Work Phone: Start: 01-03-2023 End: 01-03-[address] [facility] Work Phone: Start: 01-03-2023 End: 01-03-2023 Patient encounter procedure [facility] Work Phone: Start: 09-03-2021 End: 09-03-[address] [facility]-Laboratory, Specimen Procedures Date Procedure Procedure Detail Performing [...] therefore, no HPV testing was performed.Performed at: [address] [id number] Director: Emma Rosenberg MD, Phone: [phone] Plan of Treatment Date Care Activity Detail Author Start: 02-01-2023 Procedure [facility] Procedure [facility] Thyroglobulin antibo dy measurement [facility] Thyroperoxidase Ab [ Units/volume] in Serum or Plasma [facility] Payers Date Payer Category Payer Unknown [id number] 2024 Self-pay [id number] 2024 Unknown [id number] 2015 Unknown [id number] Unknown SELF PAY INSURANCE [id number] Unknown [id number] Unknown [id number] 2.16.8 [id number] Unknown [id number] 2.16.8 [id number] Unknown [id number] 2.16.8 [id number] Unknown [id number] 2.16.8 [id number] Unknown [id number] 2.16.8 [id number] Social History Date Type Detail Facility Start: 02-10-2014 End: 02-10-2014 Tobacco smoking status ARIS Unknown if ever smoked [facility] Start: 2000 Sex Assigned At Female [facility] Start: 08-22-2024 Tobacco smoking stat [facility] Never smoked tobacco (finding) [facility] Gender Identity Identifies as fe male gender (finding) [facility] Sexual Orientation Heterosexual (finding) [facility] Evaluation note Note Date & Type Note Facility Evaluation note No assessment information availa ble [facility] Work Phone: Reason for referral (narrative) Note Date & Type Note Facility Reason for referral (narrative) No reason for referral information available [facility] Work Phone: Advance Directives No Advanced Directives Records Found Advance Directive Response Recorded Date/ Time Advance Directives No February 10, 2014 9:28am Living Will No February 10 9:28am Power of Fisheries Enforcement Officer No February 10, 2014 9:28am Advance Directive Response Recorded Date/ Time Advance Directives No February 10, 2014 8:28am Living Will No February 10 8:28am Power of Fisheries Enforcement Officer No February 10, 2014 8:28am Advance Directive Response Recorded Date/ Time Advance Directives No February 10, 2014 9:28am Chief Complaint and Reason for Visit Chief Complaint diabities Chief Complaint 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 [facility] [employer] [facility]. provides no warranty or guarantee of the accuracy or completeness of information in this document.
== END | disposition home or self-care (01) ==
LOC: OPUS 07:47
PROVIDERS: PCP Family Medicine; Referring Provider Obstetrics & Gynecology; Visit Provider Obstetrics & Gynecology
DX: Z34.90 Encounter for supervision of normal pregnancy, unspecified, unspecified trimester (principal)
CPT/HCPCS: 76817